=== PATIENT | female | born 2000 | race Asian ===

== ENCOUNTER → 2025-07-19 | Outpatient (CLI) | payer OTHER ==
[2025-07-19 09:23] LABS: PLATELET COUNT (AUTO) 276 K/uL (150-450); RED BLOOD CELL COUNT(AUTO) 4.54 MIL/uL (4.00-5.20); RED CELL DISTRIBUTION WIDTH 15.3 % (11.5-14.5); WHITE BLOOD COUNT (AUTO) 3.8 K/uL (4.5-11.0)
[2025-07-19 09:44] LABS: RBC MORPHOLOGY COMMENT ABNORMAL RBC MORPH
[2025-07-19 09:52] LABS: CALCIUM, TOTAL 8.1 mg/dL (8.8-10.5); CREATININE 0.46 mg/dL (0.60-1.30); GLOMERULAR FILTR. RATE CALC > 60 mL/min (>60); GLUCOSE,RANDOM 91 mg/dL (70-110); SODIUM SERUM 136 mmol/L (136-145); UREA NITROGEN, BLOOD 11 mg/dL (7-18)
[2025-07-19 10:55] LABS: % IRON SATURATION 4.1 % (22-44); IRON, SERUM 17.0 mcg/dL (50-175)
[2025-07-20 09:07] LABS: IGA (IFE) 365 mg/dL (87-352); IGM (IMMUNOFIXATION) 164 mg/dL (26-217)
[2025-07-25 08:07] LABS: ALBUMIN (PEP) 3.6 g/dL (2.9-4.4); ALBUMIN/GLOBULIN RAITO (PEP) 1.1 (0.7-1.7); ALPHA-1 GLOBULINS(PEP) 0.2 g/dL (0.0-0.4); ALPHA-2 GLOBULINS (PEP) 0.7 g/dL (0.4-1.0); BETA (PEP) 1.2 g/dL (0.7-1.3); GAMMA GLOBULINS (PEP) 1.3 g/dL (0.4-1.8); GLOBULIN TOTAL (PEP) 3.4 g/dL (2.2-3.9); M-SPIKE (PEP) Not Observed g/dL (Not Observed)
== END | disposition home or self-care (01) ==
LOC: LABMN 08:24
PROVIDERS: ATTEND Nurse Practitioner
DX: D64.9 Anemia, unspecified (principal)
CPT/HCPCS: 80048; 82607; 82728; 82784; 83540; 83550; 84155; 84165; 85025; 86334